=== PATIENT | female | born 1970 | race Caucasian/White ===

== ENCOUNTER → 2025-06-20 07:05 | Outpatient (REF) | payer BC, SELFPAY ==
[2025-06-20] VITALS (7 sets, daily range): BP systolic 67–132; BP diastolic 57–75
[2025-06-20 07:41] LABS: INR 1.04; PT 13.9 Sec (11.4-14.6)
[2025-06-20 07:45] LABS: Hematocrit 33.5 % (37.0-47.0); Hemoglobin 10.5 g/dL (12.0-16.0); Mean Corp Hgb Conc. 31.3 g/dL (33.0-37.0); Mean Corpuscular Volume 84.8 fL (81.0-99.0); Platelet Count 307 10^3/uL (130-400); Red Cell Dist. Width 19.0 % (11.5-14.5)
[2025-06-20] MEDS: ATIVAN 0.5 MG PO (08:05)
[2025-06-20 08:19] LABS: Absolute Neutrophils -Man Diff 4.6 10^3/uL (1.4-6.5)
[2025-06-20 08:20] LABS: Anisocytosis 1+; Basophilic Stippling 1+; Hypochromasia 1+; Normal RBC Morphology No; Ovalocytes 2+; Platelets Checked Yes; Polychromasia 1+
[2025-06-20 08:21] LABS: Acanthocytes 1+; Tear Drop Red Blood Cells 1+; Total Cells Counted 100
== END ==
LOC: RADI 07:05
PROVIDERS: ATTENDING PHYSICIAN Internal Medicine Hematology & Oncology; REFERRING PHYSICIAN Physician Assistant
DX: D50.8 Other iron deficiency anemias (principal)
CPT/HCPCS: 36415; 38222; 77012; 85025; 85610; 88305; 88311; 88312; 88313